=== PATIENT | male | born 1955 | race Two or more races ===

== ENCOUNTER 2018-09-21 08:03 | Outpatient (CLI) | payer OTHER | END 2018-09-21 09:29 | disposition home or self-care (01) | LOC: NUCLEAR 08:03 | DX: C61 Malignant neoplasm of prostate (principal) | CPT/HCPCS: 78306; 78320; A9503 ==

== ENCOUNTER 2025-01-03 12:45 | Inpatient (IN) | payer OTHER ==
[~2025-01-03] VITALS: Ht 180.3 cm; Wt 83.9 kg
[2025-01-04] MEDS ORDERED: JANUMET 50-1,01 EACH PO (08:35)
[2025-01-04] MEDS ORDERED: LIPITOR20 MG PO (08:36)
[2025-01-04] MEDS ORDERED: LOSARTAN POTASS50 MG PO (08:36)
[2025-01-04] MEDS ORDERED: JARDIANCE10 MG PO (08:36)
[2025-01-15] MEDS ORDERED: BUPIVACAINE HCL/Mpf 0.5% 10ML VIAL ONE (10:57)
[2025-01-15] MEDS ORDERED: LIDOCAINE HCL 1%/EPINEPHRINE 20ML VIAL IJ ONE (10:57)
[2025-01-15] MEDS ORDERED: METRONIDAZOLE/SODIUM CHLORIDE 500 MG/100 ML PIGGYBACK IV ONE (12:00)
[2025-01-15] MEDS ORDERED: CEFTRIAXONE SODIUM 2,000 MG VIAL IV ONE (12:00)
[2025-01-15] MEDS ORDERED: hydrALAZINE HCL 20 MG VIAL ONE (14:41)
[2025-01-15] MEDS ORDERED: MORPHINE SULFATE 4 MG/ML CARTRIDGE IV PRN (15:15)
[2025-01-15] MEDS ORDERED: OxyCODONE HCL 5 MG TABLET (ROXICODONE) PO PRN (15:15)
[2025-01-15] MEDS ORDERED: ONDANSETRON HCL 2 MG/ML VIAL IV PRN (15:15)
[2025-01-15] MEDS ORDERED: RINGERS SOLUTION,LACTATED 1,000 ML IV SCH (15:15)
[2025-01-15 16:05] LABS: BASO % 0.5 % (0.1-1.2); EOS # 0.15 (0.04-0.54); EOS % 0.6 % (0.7-7.0); LYMPH # 3.18 (1.18-3.74); LYMPH % 12.5 % (19.3-53.1); MEAN PLATELET VOLUME 11.00 fl (9.4-12.4); MONO # 1.28 (0.24-0.82); MONO % 5.0 % (4.7-12.5); NEUT # 20.56 (1.56-6.13); NEUT % 81.0 % (34.0-71.1); RED CELL DISTRIBUTION WIDTH 11.6 % (11.6-14.4)
[2025-01-15] MEDS ORDERED: HYOSCYAMINE SULFATE 0.125 MG TAB.SUBL SL SCH (17:00)
[2025-01-15] MEDS ORDERED: METOCLOPRAMIDE HCL 5 MG/ML VIAL IV SCH (17:00)
[2025-01-15] MEDS ORDERED: SIMETHICONE 125 MG CAPSULE PO SCH (17:00)
[2025-01-15] MEDS ORDERED: CELECOXIB 200 MG CAPSULE PO SCH (17:00)
[2025-01-15] MEDS ORDERED: GABAPENTIN 300 MG CAPSULE PO SCH (17:00)
[2025-01-15] MEDS ORDERED: GABAPENTIN 300 MG CAPSULE PO ONE (18:26)
[2025-01-15] MEDS ORDERED: CELECOXIB 200 MG CAPSULE PO ONE (18:26)
[2025-01-15] MEDS ORDERED: SIMETHICONE 125 MG CAPSULE PO ONE (18:26)
[2025-01-15] MEDS ORDERED: HYOSCYAMINE SULFATE 0.125 MG TAB.SUBL ONE (18:26)
[2025-01-15] MEDS ORDERED: INSULIN LISPRO 1,000 UNIT/10 ML UNITS SUBCUTANEO PRN (19:15)
[2025-01-15] MEDS ORDERED: hydrALAZINE HCL 20 MG VIAL IV PRN (19:15)
[2025-01-15] MEDS ORDERED: DEXTROSE 50 % IN WATER 0.5 G/ML DISP.SYRIN IV PRN (19:15)
[2025-01-15 19:28] VITALS: BP 106/67; O2SAT 96
[2025-01-15] MEDS ORDERED: ACETAMINOPHEN 500 MG GEL..CAP PO SCH (20:00)
[2025-01-15] MEDS ORDERED: LOSARTAN POTASSIUM 50 MG TABLET PO SCH (21:00)
[2025-01-15] MEDS ORDERED: FAMOTIDINE/PF 20 MG/2 ML VIAL IV PUSH SCH (21:00)
[2025-01-16 01:57] VITALS: BP 117/69; O2SAT 99
[2025-01-16 06:56] LABS: BASO % 0.4 % (0.1-1.2); EOS # 0.00 (0.04-0.54); EOS % 0.0 % (0.7-7.0); LYMPH # 0.98 (1.18-3.74); LYMPH % 5.5 % (19.3-53.1); MEAN PLATELET VOLUME 11.50 fl (9.4-12.4); MONO # 0.85 (0.24-0.82); MONO % 4.8 % (4.7-12.5); NEUT # 15.90 (1.56-6.13); NEUT % 88.8 % (34.0-71.1); RED CELL DISTRIBUTION WIDTH 11.5 % (11.6-14.4)
[2025-01-16 07:36] LABS: BUN CREA RATIO 18.0 (7.0-25.0); CREATININE SERUM 1.37 mg/dL (0.70-1.30); GFR 51.37; GLUCOSE FASTING 192.0 mg/dL (65-100); OSMOLALITY SERUM 285.0 MOSM/KG (275-295)
[2025-01-16 08:00] VITALS: BP 127/78; O2SAT 97
[2025-01-16] MEDS ORDERED: LACTOBACILLUS ACIDOPHILUS 1 CAP CAP PO SCH (09:00)
[2025-01-16] MEDS ORDERED: LACTULOSE 20 G/30 ML BLIST.PACK PO SCH (09:00)
[2025-01-16] MEDS ORDERED: DEXTROSE 50 % IN WATER 0.5 G/ML DISP.SYRIN IV PRN (11:00)
[2025-01-16] MEDS ORDERED: 0.9 % SODIUM CHLORIDE 1,000 ML IV SCH (11:00)
[2025-01-16] MEDS ORDERED: INSULIN LISPRO 1,000 UNIT/10 ML UNITS SUBCUTANEO PRN (11:00)
[2025-01-16 16:00] VITALS: BP 95/60; O2SAT 95
[2025-01-16] MEDS ORDERED: ENOXAPARIN SODIUM 40 MG/0.4 ML SYRINGE SUBCUTANEO SCH (17:00)
[2025-01-16] MEDS ORDERED: ATORVASTATIN CALCIUM 10 MG TABLET PO SCH (17:00)
[2025-01-16 20:39] VITALS: BP 111/66
[2025-01-17 00:40] VITALS: BP 109/69; O2SAT 97
[2025-01-17 06:18] LABS: BASO % 0.4 % (0.1-1.2); EOS # 0.07 (0.04-0.54); EOS % 0.5 % (0.7-7.0); LYMPH # 1.50 (1.18-3.74); LYMPH % 10.5 % (19.3-53.1); MEAN PLATELET VOLUME 11.60 fl (9.4-12.4); MONO # 0.97 (0.24-0.82); MONO % 6.8 % (4.7-12.5); NEUT # 11.62 (1.56-6.13); NEUT % 81.4 % (34.0-71.1); RED CELL DISTRIBUTION WIDTH 11.6 % (11.6-14.4)
[2025-01-17 07:06] LABS: BUN CREA RATIO 20.0 (7.0-25.0); CREATININE SERUM 1.87 mg/dL (0.70-1.30); GFR 35.87; GLUCOSE FASTING 111.0 mg/dL (65-100); OSMOLALITY SERUM 285.0 MOSM/KG (275-295)
[2025-01-17 07:30] VITALS: BP 126/73; O2SAT 97
[2025-01-17] MEDS ORDERED: ENOXAPARIN SODIUM 40 MG/0.4 ML SYRINGE SUBCUTANEO SCH (09:00)
[2025-01-17 16:00] VITALS: BP 159/76; O2SAT 95
[2025-01-18 01:17] VITALS: BP 124/72; O2SAT 98
[2025-01-18 07:55] LABS: BUN CREA RATIO 18.0 (7.0-25.0); CREATININE SERUM 1.19 mg/dL (0.70-1.30); GFR 60.44; GLUCOSE FASTING 146.0 mg/dL (65-100); OSMOLALITY SERUM 285.0 MOSM/KG (275-295)
[2025-01-18 08:33] VITALS: BP 119/69; O2SAT 98
[2025-01-18 16:00] VITALS: BP 116/69; O2SAT 98
== END 2025-01-18 21:10 | disposition home or self-care (01) | DRG 331 ==
LOC: SURH 01-15 07:00 → O/R 01-15 08:00 → SURG 01-15 08:00 → SURH 01-15 12:45 → SURG 01-15 15:45
PROVIDERS: Internal Medicine Geriatric Medicine; ADMIT Colon & Rectal Surgery; ATTEND Colon & Rectal Surgery
PROC: 0DBP4ZZ Excision of Rectum, Percutaneous Endoscopic Approach (ICD-10-PCS; 2025-01-15)
PROC: 07BC4ZX Excision of Pelvis Lymphatic, Percutaneous Endoscopic Approach, Diagnostic (ICD-10-PCS; 2025-01-15)
PROC: 0DTN4ZZ Resection of Sigmoid Colon, Percutaneous Endoscopic Approach (ICD-10-PCS; principal; 2025-01-15 07:00)
DX: C18.7 Malignant neoplasm of sigmoid colon (principal); D12.5 Benign neoplasm of sigmoid colon

== ENCOUNTER 2025-01-20 06:56 | Inpatient (IN) | payer OTHER ==
[~2025-01-20] VITALS: Ht 180.3 cm; Wt 83.9 kg
[~2025-01-20 06:56] MED LIST: JANUMET 50-1,01 EACH PO; JARDIANCE10 MG PO; LIPITOR20 MG PO; LOSARTAN POTASS50 MG PO
--- NOTE | 2025-01-20 07:16 | NUR ---
SE RECIBE PTE ALERTA Y ORIENTADO X3 QUIEN REFIERE QUE [facility] [facility] [place] OPERACION DE POLIPOS EL 2 DE DICIEMBRE, EN EL ANA DE [place]AC[place]N COMEN[place] CON EPISODIOS DE VOMITOS. SE MIDEN S/V Y SE UBICA.
[2025-01-20] MEDS ORDERED: FAMOTIDINE/PF 20 MG/2 ML VIAL IV ONE (07:30)
[2025-01-20] MEDS ORDERED: ONDANSETRON HCL 2 MG/ML VIAL IV ONE (07:30)
[2025-01-20] MEDS ORDERED: 0.9 % SODIUM CHLORIDE 1,000 ML IV SCH ×2 (07:30→18:00)
[2025-01-20] MEDS ORDERED: ONDANSETRON HCL 2 MG/ML VIAL ONE (07:39)
[2025-01-20] MEDS ORDERED: FAMOTIDINE/PF 20 MG/2 ML VIAL ONE (07:40)
--- NOTE | 2025-01-20 08:25 | NUR ---
SE ORIENTA PTE SOBRE TX A SEGUIR, EL MISMO REFIERE ENTENDER. SE ISELA MUESTRA DE LAB, SE CANALIZA Y SE ADMINISTRA MED CINDA ORDEN MEDICA.
[2025-01-20 08:49] LABS: BASO % 0.3 % (0.1-1.2); EOS # 0.04 (0.04-0.54); EOS % 0.3 % (0.7-7.0); LYMPH # 1.33 (1.18-3.74); LYMPH % 9.1 % (19.3-53.1); MEAN PLATELET VOLUME 11.00 fl (9.4-12.4); MONO # 1.49 (0.24-0.82); MONO % 10.2 % (4.7-12.5); NEUT # 11.69 (1.56-6.13); NEUT % 79.8 % (34.0-71.1); RED CELL DISTRIBUTION WIDTH 11.4 % (11.6-14.4)
[2025-01-20 09:08] LABS: INR 1.05
[2025-01-20 09:14] LABS: ERYTHROCYTE SEDIMENTATION RATE 26 mm/hr (0-20)
[2025-01-20 09:20] LABS: ALT/SGPT 24.0 U/L (12-78); AST/SGOT 16.0 U/L (15-37); BILIRUBIN TOTAL 1.75 mg/dL (0.3-1.2); BUN CREA RATIO 15.0 (7.0-25.0); CREATININE SERUM 1.51 mg/dL (0.70-1.30); GFR 45.91; GLOBULINA 4.8 G/DL (2.4-3.5)
[2025-01-20 09:22] LABS: GLUCOSE FASTING 326.0 mg/dL (65-100); OSMOLALITY SERUM 285.0 MOSM/KG (275-295)
[2025-01-20 11:10] LABS: URINE APPEARANCE Clear; URINE BILIRRUBIN Negative (NEGATIVE); URINE BLOOD Negative; URINE COLOR Dark Yellow; URINE KETONE 15 (NEGATIVE); URINE LEUKOCYTE Negative; URINE NITRATE Negative; URINE UROBILINOGEN 0.2 E.U./dl
[2025-01-20 11:14] LABS: URINE BACTERIA 16.0 uL (0.0-1933); URINE CAST 8.07 uL (0.0-1.40); URINE EPITHELIAL CELLS 12.5 uL (0.0-38.8); URINE RBC 4.2 uL (0.0-20.8); URINE WBC 4.1 uL (0.0-23.2)
[2025-01-20 11:44] LABS: URINE GLUCOSE >=1000 MG/DL (NEGATIVE); URINE PROTEIN 100 (NEGATIVE)
[2025-01-20] MEDS ORDERED: FAMOTIDINE/PF 20 MG in 0.9 % SODIUM CHLORIDE 8 ML IV PUSH SCH (18:02)
[2025-01-20] MEDS ORDERED: ONDANSETRON HCL 4 MG in 0.9 % SODIUM CHLORIDE 50 ML IV PRN (18:15)
[2025-01-20] MEDS ORDERED: INSULIN LISPRO 1,000 UNIT/10 ML UNITS SUBCUTANEO PRN (18:15)
[2025-01-20] MEDS ORDERED: MORPHINE SULFATE 4 MG/ML CARTRIDGE IV PRN (18:15)
[2025-01-20] MEDS ORDERED: DEXTROSE 50 % IN WATER 0.5 G/ML DISP.SYRIN IV PRN (18:15)
[2025-01-20] MEDS ORDERED: CIPROFLOXACIN IN 5 % DEXTROSE 200 ML IV SCH (21:00)
[2025-01-21 08:00] VITALS: BP 160/80; O2SAT 97
[2025-01-21] MEDS ORDERED: MAGNESIUM SULFATE IN WATER 2 GM/50 ML PIGGYBAG IV NR (08:00)
[2025-01-21] MEDS ORDERED: LOSARTAN POTASSIUM 50 MG TABLET PO SCH (09:00)
[2025-01-21] MEDS ORDERED: INSULIN LISPRO 1,000 UNIT/10 ML UNITS SUBCUTANEO PRN (11:00)
[2025-01-21] MEDS ORDERED: DEXTROSE 50 % IN WATER 0.5 G/ML DISP.SYRIN IV PRN (11:00)
[2025-01-21] MEDS ORDERED: hydrALAZINE HCL 20 MG VIAL IV PRN (11:00)
[2025-01-21 11:09] LABS: BASO % 0.6 % (0.1-1.2); EOS # 0.48 (0.04-0.54); EOS % 5.6 % (0.7-7.0); LYMPH # 1.15 (1.18-3.74); LYMPH % 13.4 % (19.3-53.1); MEAN PLATELET VOLUME 10.90 fl (9.4-12.4); MONO # 0.86 (0.24-0.82); MONO % 10.0 % (4.7-12.5); NEUT # 6.01 (1.56-6.13); NEUT % 69.9 % (34.0-71.1); RED CELL DISTRIBUTION WIDTH 11.7 % (11.6-14.4)
[2025-01-21 11:24] LABS: BUN CREA RATIO 17.0 (7.0-25.0); CREATININE SERUM 1.0 mg/dL (0.70-1.30); GFR 73.87; OSMOLALITY SERUM 282.0 MOSM/KG (275-295)
[2025-01-21 11:26] LABS: GLUCOSE FASTING 223.0 mg/dL (65-100)
[2025-01-21 16:57] VITALS: BP 129/87; O2SAT 99
[2025-01-21] MEDS ORDERED: AA 4.25%/CAL/LYTES/DEXT 5% 1,000 ML PERIFERAL SCH (17:00)
[2025-01-22] VITALS: BP 145/70; O2SAT 96
[2025-01-22] MEDS ORDERED: LORazepam 2 MG/ML VIAL IV PRN ×2 (02:45→15:00)
[2025-01-22 07:30] VITALS: BP 146/83; O2SAT 98
[2025-01-22] MEDS ORDERED: DEXTROSE 50 % IN WATER 0.5 G/ML DISP.SYRIN IV PRN (10:45)
[2025-01-22] MEDS ORDERED: INSULIN LISPRO 1,000 UNIT/10 ML UNITS SUBCUTANEO PRN (10:45)
[2025-01-22] MEDS ORDERED: PANTOPRAZOLE SODIUM 80 MG in 0.9 % SODIUM CHLORIDE 100 ML IV SCH (12:00)
[2025-01-22] MEDS ORDERED: DIATRIZOATE MEGLUMINE, SODIUM 30 ML BOTTLE PO NR (14:30)
[2025-01-22 16:58] VITALS: BP 131/72; O2SAT 95
[2025-01-22] MEDS ORDERED: FAT EMULSIONS 250 ML IV SCH (21:00)
[2025-01-23 00:44] VITALS: BP 142/84; O2SAT 96
[2025-01-23 07:49] LABS: BASO % 0.4 % (0.1-1.2); EOS # 0.43 (0.04-0.54); EOS % 4.7 % (0.7-7.0); LYMPH # 1.20 (1.18-3.74); LYMPH % 13.1 % (19.3-53.1); MEAN PLATELET VOLUME 10.70 fl (9.4-12.4); MONO # 0.79 (0.24-0.82); MONO % 8.6 % (4.7-12.5); NEUT # 6.66 (1.56-6.13); NEUT % 72.4 % (34.0-71.1); RED CELL DISTRIBUTION WIDTH 11.5 % (11.6-14.4)
[2025-01-23 08:00] VITALS: BP 157/82; O2SAT 96
[2025-01-23 08:15] LABS: ALT/SGPT 19.0 U/L (12-78); AST/SGOT 11.0 U/L (15-37); BILIRUBIN TOTAL 1.42 mg/dL (0.3-1.2); BUN CREA RATIO 17.0 (7.0-25.0); CREATININE SERUM 0.94 mg/dL (0.70-1.30); GFR 79.34; GLOBULINA 3.3 G/DL (2.4-3.5)
[2025-01-23 08:25] LABS: GLUCOSE FASTING 228.0 mg/dL (65-100); OSMOLALITY SERUM 284.0 MOSM/KG (275-295)
[2025-01-23] MEDS ORDERED: INSULIN NPH HUMAN ISOPHANE 1,000 UNITS/10 ML UNITS SUBCUTANEO SCH (09:00)
[2025-01-23] MEDS ORDERED: MAGNESIUM SULFATE IN WATER 50 ML IV NR (11:00)
[2025-01-23 16:00] VITALS: BP 123/71; O2SAT 96
[2025-01-23] MEDS ORDERED: AA 5 %/CALCIUM/LYTES/DEXT 20 % 2,000 ML CENTRAL SCH (17:00)
[2025-01-24 01:05] VITALS: BP 140/85; O2SAT 97
[2025-01-24] MEDS ORDERED: INSULIN REGULAR, HUMAN 1,000 UNIT/10 ML UNITS IV STA (06:36)
[2025-01-24 07:55] VITALS: BP 150/79; O2SAT 97
[2025-01-24] MEDS ORDERED: INSULIN NPH HUMAN ISOPHANE 1,000 UNITS/10 ML UNITS SUBCUTANEO SCH (09:00)
[2025-01-24 17:12] VITALS: BP 156/77; O2SAT 96
[2025-01-24 23:52] VITALS: BP 150/71; O2SAT 97
[2025-01-25 06:17] LABS: BASO % 0.5 % (0.1-1.2); EOS # 0.53 (0.04-0.54); EOS % 5.7 % (0.7-7.0); LYMPH # 1.45 (1.18-3.74); LYMPH % 15.5 % (19.3-53.1); MEAN PLATELET VOLUME 10.60 fl (9.4-12.4); MONO # 0.87 (0.24-0.82); MONO % 9.3 % (4.7-12.5); NEUT # 6.43 (1.56-6.13); NEUT % 68.5 % (34.0-71.1); RED CELL DISTRIBUTION WIDTH 11.3 % (11.6-14.4)
[2025-01-25 07:20] LABS: BUN CREA RATIO 19.0 (7.0-25.0); CREATININE SERUM 1.08 mg/dL (0.70-1.30); GFR 67.59; OSMOLALITY SERUM 289.0 MOSM/KG (275-295)
[2025-01-25 07:22] LABS: GLUCOSE FASTING 354.0 mg/dL (65-100)
[2025-01-25 08:32] VITALS: BP 154/82; O2SAT 97
[2025-01-25] MEDS ORDERED: INSULIN NPH HUMAN ISOPHANE 1,000 UNITS/10 ML UNITS SUBCUTANEO SCH (09:00)
[2025-01-25] MEDS ORDERED: MIDAZOLAM HCL 2 MG/2 ML VIAL IV ONE (13:15)
[2025-01-25] MEDS ORDERED: fentaNYL CITRATE 50 MCG/ML AMPUL IV ONE (13:15)
[2025-01-25 16:00] VITALS: BP 164/88; O2SAT 98
[2025-01-25] MEDS ORDERED: LACTOBACILLUS ACIDOPHILUS 1 CAP CAP PO SCH (17:00)
[2025-01-25 17:24] VITALS: BP 165/77; O2SAT 98
[2025-01-25 21:44] VITALS: BP 107/57
[2025-01-26 01:33] VITALS: BP 126/72; O2SAT 96
[2025-01-26] MEDS ORDERED: PANTOPRAZOLE SODIUM 40 MG TABLET.DR PO SCH (06:00)
[2025-01-26 08:20] VITALS: BP 142/70; O2SAT 98
[2025-01-26 16:30] VITALS: BP 153/69; O2SAT 98
[2025-01-27 02:14] VITALS: BP 124/73; O2SAT 97
[2025-01-27 07:46] LABS: BASO % 0.8 % (0.1-1.2); EOS # 0.50 (0.04-0.54); EOS % 5.6 % (0.7-7.0); LYMPH # 1.74 (1.18-3.74); LYMPH % 19.3 % (19.3-53.1); MEAN PLATELET VOLUME 10.70 fl (9.4-12.4); MONO # 0.87 (0.24-0.82); MONO % 9.7 % (4.7-12.5); NEUT # 5.73 (1.56-6.13); NEUT % 63.6 % (34.0-71.1); RED CELL DISTRIBUTION WIDTH 11.1 % (11.6-14.4)
[2025-01-27 08:19] LABS: ALT/SGPT 11.0 U/L (12-78); AST/SGOT 8.0 U/L (15-37); BILIRUBIN TOTAL 1.07 mg/dL (0.3-1.2); BILIRUBIN,CONJUGATED 0.45 mg/dL (0.0-0.2); BUN CREA RATIO 15.0 (7.0-25.0); CREATININE SERUM 1.0 mg/dL (0.70-1.30); GFR 73.87; GLOBULINA 3.0 G/DL (2.4-3.5); GLUCOSE FASTING 163.0 mg/dL (65-100); OSMOLALITY SERUM 276.0 MOSM/KG (275-295)
[2025-01-27 08:45] VITALS: BP 147/71; O2SAT 97
[2025-01-27] MEDS ORDERED: INSULIN GLARGINE,HUM.REC.ANLOG 1,000 UNITS/10 ML UNITS SUBCUTANEO SCH (09:00)
[2025-01-27] MEDS ORDERED: MAGNESIUM SULFATE IN WATER 50 ML IV NR (10:01)
[2025-01-27] MEDS ORDERED: POTASSIUM PHOS,M-BASIC-D-BASIC 3 MM/ML VIAL IV NR (13:00)
[2025-01-27 16:32] VITALS: BP 145/73; O2SAT 95
[2025-01-28 00:23] VITALS: BP 141/83; O2SAT 97
[2025-01-28 07:30] VITALS: BP 145/71; O2SAT 98
[2025-01-28] MEDS ORDERED: INSULIN LISPRO 1,000 UNIT/10 ML UNITS SUBCUTANEO SCH (08:00)
[2025-01-28] MEDS ORDERED: INSULIN GLARGINE,HUM.REC.ANLOG 1,000 UNITS/10 ML UNITS SUBCUTANEO SCH (09:00)
[2025-01-28] MEDS ORDERED: INTESTINEX680 M1 PO (13:47)
[2025-01-28] MEDS ORDERED: INTEGRA F CAPS1 EACH PO (13:47)
[2025-01-28] MEDS ORDERED: JARDIANCE10 MG PO (13:47)
[2025-01-28] MEDS ORDERED: JANUMET 50-1,01 EACH PO (13:47)
[2025-01-28] MEDS ORDERED: PANTOPRAZOLE SO40 MG PO (13:47)
[2025-01-28] MEDS ORDERED: LOSARTAN POTASS50 MG PO (13:47)
[2025-01-28] MEDS ORDERED: LIPITOR20 MG PO (13:47)
[2025-01-28] MEDS ORDERED: ABANEU-SL TABL1 EACH SL (13:47)
== END 2025-01-28 22:20 | disposition home or self-care (01) | DRG 388 ==
LOC: ER 06:56 → SURH 20:41
PROVIDERS: General Practice; Internal Medicine Geriatric Medicine; Internal Medicine Infectious Disease; Student in an Organized Health Care Education/Training Program; Surgery; ADMIT Colon & Rectal Surgery; ATTEND Colon & Rectal Surgery
PROC: BW21YZZ Computerized Tomography (CT Scan) of Abdomen and Pelvis using Other Contrast (ICD-10-PCS; 2025-01-20)
PROC: BW21ZZZ Computerized Tomography (CT Scan) of Abdomen and Pelvis (ICD-10-PCS; 2025-01-22)
PROC: 02HV33Z Insertion of Infusion Device into Superior Vena Cava, Percutaneous Approach (ICD-10-PCS; 2025-01-22)
PROC: 0DJ08ZZ Inspection of Upper Intestinal Tract, Via Natural or Artificial Opening Endoscopic (ICD-10-PCS; principal; 2025-01-25)
DX: K56.600 Partial intestinal obstruction, unspecified as to cause (principal); A41.9 Sepsis, unspecified organism; N17.9 Acute kidney failure, unspecified; I10 Essential (primary) hypertension; D64.9 Anemia, unspecified; E11.9 Type 2 diabetes mellitus without complications; Z79.4 Long term (current) use of insulin; M79.81 Nontraumatic hematoma of soft tissue